=== PATIENT | female | born 1945 | race Two or more races ===

== ENCOUNTER 2018-02-22 15:06 | Emergency (ER) | payer OTHER, MEDICAID ==
[2018-02-22] MEDS: DIPHENHYDRAMINE 25 MG CAP PO (18:12)
[2018-02-22] MEDS: predniSONE 20 MG TAB PO (18:12)
== END 2018-02-22 18:20 | disposition home or self-care (01) ==
LOC: FTE 15:06
DX: R21 Rash and other nonspecific skin eruption (principal); I10 Essential (primary) hypertension
CPT/HCPCS: 99284